=== PATIENT | female | born 2000 | race African-American/Black ===

== ENCOUNTER 2023-12-26 14:41 | Emergency (ER) | payer SELFPAY ==
[~2023-12-26] VITALS: Ht 149.9 cm; Wt 51.8 kg
[2023-12-26 14:55] VITALS: BP 119/83; TEMP 98.1
[2023-12-26] MEDS ORDERED: TEMOVATE60CR TOP (16:54)
[2023-12-26] MEDS ORDERED: MEDROL 4MG DOSPA4 MG PO (16:54)
[2023-12-26 17:01] VITALS: PULSE 87
== END 2023-12-26 17:00 | disposition home or self-care (01) ==
LOC: COL.ER 14:41
DX: L30.9 Dermatitis, unspecified (principal); F17.200 Nicotine dependence, unspecified, uncomplicated

== ENCOUNTER 2024-01-01 11:34 | Emergency (ER) | payer SELFPAY ==
[~2024-01-01] VITALS: Ht 149.9 cm; Wt 47.7 kg
[~2024-01-01 11:34] MED LIST: MEDROL 4MG DOSPA4 MG PO; TEMOVATE60CR TOP
[2024-01-01 11:48] VITALS: BP 98/70; TEMP 98.2
[2024-01-01] MEDS ORDERED: AMOXICILLIN 8751 TAB PO (12:16)
[2024-01-01 12:27] VITALS: PULSE 106
== END 2024-01-01 12:30 | disposition home or self-care (01) ==
LOC: COL.ER 11:34
DX: S61.451A Open bite of right hand, initial encounter (principal); Z23 Encounter for immunization; W54.0XXA Bitten by dog, initial encounter